=== PATIENT | female | born 1975 | race Caucasian/White ===

== ENCOUNTER → 2019-06-01 14:28 | Outpatient (CLI) | payer BC, MEDICAID, SELFPAY ==
--- NOTE | 2019-06-01 | IMM_PTH ---
PATIENT: FREDDY STEINER LOC: [facility] U#:[id number] AGE/SX: 50/F ROOM: RE06/01/[address]: Dr. Ephraim Villafana MD : 1975 BED: DIS: SPEC #: [id number] RECD: 06/04/19 13:10 STATUS: PRATEEK REQ #: [id number] CAROLYN: 06/01/19 00:[address]: Ephraim Villafana DEPT: IMMUNOHISTOCHEMISTRY RECD BY: Courtney Lim ENTERED: 06/04/19 13:11 SP TYPE: IMMUNO OTHR DR: Dr. Ronald Valenzuela MD Tissues: Left breast, NOS Procedures: CALPONIN-1 (add) CK5-6 (add) CK8 (add) E-CAD (add) HER2 TUNG (add) KI-67 (add) P53 (add) HI (add) P40 (add) ER (initial) PHYSICIAN & INSTITUTION [address] [address] SPECIMEN INFORMATION: Tissue Source: Left breast biopsy Clinical Info: Abnormal left breast ultrasound Specimen Number: [id number] CPT code: 82688, 90375 x6, 70292 x3 METHODOLOGY: Deparaffinized sections of prefer/formalin-fixed tissue or PAP/DQ stained slides are incubated with monoclonal/polyclonal antibodies/oligonucleotide probes. Localization is made via biotin free immunoperoxidase method. Appropriate controls are performed and reacted as expected. Results on target cell population are indicated in the following table: RESULTS: ANTIBODY / CLONE RESULT P53 (DO-7) positive, >20% Ki-67 (30-9) positive, low CK8 (83woibR02) positive CK5-6 (D5 & 1684) negative Calponin-1 (CK762Y) negative P40 (BC28) negative E-Cad (ECH-6) positive MORPHOMETRIC ANALYSIS ER (clone 6F11) >95%, strong intensity HI (clone 16/1E2) 84%, moderate to strong intensity Her-2Neu (clone CB11) 0 The prognostic test for HER2 is performed on formalin-fixed paraffin embedded tissue. A 3+ (positive) staining pattern is defined as intense, homogeneous, complete, circumferential membranous staining in >10% of contiguous tumor cells. A similar weak (2+) staining pattern is interpreted as equivocal. DALLIN follow-up testing is recommended for all equivocal cases. Positivity/negativity for ER/HI is reported if > or < 1% of the tumor cells are immuno- reactive, respectively. The ASCO/CAP criteria is used for scoring. Reference: Journal of Clinical Oncology, 2013; 31:5070-5893 & 2010; 16:7899-2721. Duration of fixation: 27 Hrs; Sample Adequate: Yes. These assays have not been validated on decalcified tissues. Results should be interpreted with caution given the likelihood of false negativity on decalcified specimens. These tests were developed and their performance characteristics determined by [facility]. They may not have been cleared or approved by the U.S. Food and Drug Administration. The FDA has determined that such clearance or approval is not necessary. INTERPRETATION: Left breast, biopsy: Invasive ductal carcinoma, nuclear grade 2. Positive for estrogen receptors (favorable prognostic indicator). Positive for progesterone receptors (favorable prognostic indicator). Negative for overexpression of JLQ3php. AM:jeri 06/04/19
[2019-06-01 13:59] VITALS: BMI 28.5
--- NOTE | 2019-06-01 14:00 | BRBX_PTH ---
PATIENT: FREDDY STEINER LOC: [facility] U#:[id number] AGE/SX: 50/F ROOM: RE06/01/[address]: Dr. Ephraim Villafana MD : 1975 BED: DIS: SPEC #: [id number] RECD: 06/01/19 15:01 STATUS: PRATEEK MAVIS #: [id number] CAROLYN: 06/01/19 14:[address]: Ephraim Villafana DEPT: SURGICAL PATHOLOGY RECD BY: Alexandro Branch ENTERED: 06/02/19 10:37 SP TYPE: BREAST BX OTHR DR: Dr. Ronald Valenzuela MD Tissues: Left breast, NOS Procedures: Surgery Specimen Level IV HEADER OPERATION: Left breast biopsy PRE-OP DIAGNOSIS: Abnormal left breast ultrasound TISSUE SUBMITTED: Left breast tissue FIXATION TIME: 27 hours MICROSCOPIC DIAGNOSIS Left breast, ultrasound-guided core biopsy: Invasive ductal carcinoma with the following characteristics: Maximal length - 10 mm Nuclear grade - 2 AM:rg 8/8/19 COMMENT ER/CT/Kpc4doo studies are being performed on sections of tumor and the results from this study will be reported separately ([id number]). Case has been reviewed in consultation with Dr. Lewis who concurs with the above diagnosis. IDC:HALEIGH MICROSCOPIC DESCRIPTION Slides are reviewed. GROSS DESCRIPTION Received in fixative is one container labeled with the patient's name and designated left breast. The specimen consists of one elongated fragment of denton soft tissue measuring 1.2 cm in length and 0.1 cm in diameter. The specimen is totally submitted in one cassette. / HALEIGH:jeri 06/02/19 TC:0 CPT: 84632 ADDENDUM ADDENDUM ADDENDUM ADDENDUM ADDENDUM ADDENDUM ADDENDUM ADDENDUM ADDENDUM ADDENDUM ADDENDUM 06/22/2019 14:06 ADDENDUM 06/22/2019 14:06 ADDENDUM 06/22/2019 14:06 ADDENDUM 06/22/2019 14:06 ADDENDUM 06/22/2019 14:06 This addendum is added to incorporate an outside pathology consultation report. The case was examined at [facility] (#[id number]) and the following diagnosis was rendered. Left breast, ultrasound guided core biopsy: Invasive ductal carcinoma provisional histologic grade 1. -see coment Please see complete above mentioned consultation report in EMR
--- NOTE | 2019-06-01 14:40 | BI_ITS ---
MAMMOGRAPHY - UNILATERAL DIAGNOSTIC: LEFT BREAST REASON FOR EXAM: Female, 44 years old. Left breast lump. Breast biopsy performed earlier today at the 12:00 position. PERTINENT HISTORY: Non-contributory. TECHNIQUE: Digital unilateral breast rosibel (3D mammographic acquisition) in the CC and MLO projections. 2-D mediolateral oblique (MLO) and craniocaudad (CC) views of both breasts were obtained. CAD: Full Field Digital Mammography with Computer Added Detection was performed. COMPARISON: Comparison is made with prior outside examination dated May 21, 2019. FINDINGS: Breast Composition: The breasts are heterogeneously dense, which may obscure small masses. A tissue clip marker is seen within a 1.3 cm by 1.4 cm nodule in the upper midportion of the breast at the 12:00 position. On the medial lateral oblique view, there is evidence of a 1.3 cm x 0.7 cm nodule in the inferior aspect of the breast. This corresponds to a nodular density at the 12:00 position of the breast adjacent to the recently biopsied nodule.. There is also evidence of a 1.9 cm x 1.6 cm well-defined nodule in the upper lateral aspect of the left breast. This most likely presents a cyst. No other significant abnormalities are identified. BI/DIAG MAMM W/CAD, UNILAT IMPRESSION: Nodular densities in the left breast as described. Correlation with ultrasound is recommended. ASSESSMENT CATEGORY: BIRADS Category 0: Incomplete. Need additional imaging evaluation. A letter regarding these results will be sent to the patient by the facility within 30 days. Approximately 10% of breast cancers are not detected by mammography. A normal mammogram should not delay biopsy of a clinically suspicious abnormality. Electronically Signed: Reed Krishnamurthy, at 8:50 EDT , Service support ,
--- NOTE | 2019-06-01 15:44 | US_ITS ---
STUDY: ULTRASOUND BREAST - LEFT REASON FOR EXAM: Female, 44 years old. Abnormal mammogram. TECHNIQUE: Axial and longitudinal images of the LEFT breast were performed with a high resolution ultrasound transducer. COMPARISON: Comparison is made with prior mammogram done earlier today. FINDINGS: LEFT Breast: The lower outer quadrant was examined by ultrasound. There is a 1.8 cm x 1.9 cm x 0.8 cm cyst at the 3:00 position breast at 5 cm from the nipple. The patient will be recalled for imaging of the upper outer quadrant of the left breast. US/Breast Limited Unilateral IMPRESSION: There is a 1.8 cm x 1.9 cm x 0.8 cm cyst at the 3:00 position of the breast at 5 cm from the nipple. The patient will be recalled for additional imaging of the upper outer quadrant of the breast. ASSESSMENT CATEGORY: BIRADS Category 0: Incomplete. Need additional imaging evaluation. A letter regarding these results will be sent to the patient by the facility within 30 days. Electronically Signed: Reed Krishnamurthy, at 10:15 EDT , Service support ,
== END ==
PROVIDERS: Family Provider Family Medicine; PCP Family Medicine; Referring Provider Surgery; Visit Provider Surgery
DX: D05.12 Intraductal carcinoma in situ of left breast (principal)
CPT/HCPCS: 76642; 77061; 77065; 88305; 88341; 88342; G0279

== ENCOUNTER → 2019-06-02 13:57 | Outpatient (CLI) | payer MEDICAID, SELFPAY ==
[2019-06-01 13:59] VITALS: BMI 28.5
--- NOTE | 2019-06-02 13:59 | US_ITS ---
STUDY: ULTRASOUND BREAST - LEFT REASON FOR EXAM: Female, 44 years old. Abnormal mammogram. TECHNIQUE: Axial and longitudinal images of the LEFT breast were performed with a high resolution ultrasound transducer. COMPARISON: Comparison is made with prior mammogram done earlier today as well as prior ultrasound dated June 01, 2019. FINDINGS: LEFT Breast: The inferior outer aspect of the left breast was examined. There is a homogeneous thyroid glandular tissue. No solid or cystic mass lesion is seen. US/Breast Limited Unilateral IMPRESSION: Unremarkable sonographic examination of the inferior outer aspect of the left breast ASSESSMENT CATEGORY: BIRADS Category 1: Negative. A letter regarding these results will be sent to the patient by the facility within 30 days. Electronically Signed: Reed Krishnamurthy, at 14:52 EDT , Service support ,
== END ==
PROVIDERS: Family Provider Family Medicine; PCP Family Medicine; Referring Provider Surgery; Visit Provider Surgery
DX: R92.8 Other abnormal and inconclusive findings on diagnostic imaging of breast (principal)
CPT/HCPCS: 76642

== ENCOUNTER → 2019-06-10 12:27 | Outpatient (CLI) | payer MEDICAID, SELFPAY ==
[2019-06-01 13:59] VITALS: BMI 28.5
--- NOTE | 2019-06-10 12:29 | MRI_ITS ---
STUDY: BILATERAL BREAST MR WITHOUT AND WITH CONTRAST REASON FOR EXAM: Female, 44 years old. Palpable lump at 12:00 position of left breast. Biopsy June 01, 2019 showed invasive duct carcinoma. TECHNIQUE: Multi-sequence multi-echo imaging of both breasts was performed with a dedicated breast coil. T1-weighted and T2-weighted images were performed before the administration of contrast. T1-weighted images were also performed after the administration of 14 IV Dotarem without complications. COMPARISON: Left breast ultrasounds dated June 01 and June 02, 2019 and left mammogram dated June 01, 2019. Bilateral diagnostic mammograms and left breast ultrasound from outside hospital dated May 21, 2019. FINDINGS: RIGHT BREAST: The breast tissue is fatty with minimal background enhancement. There are no abnormal enhancing masses or areas of non-mass enhancement in the right breast. LEFT BREAST: The breast tissue is fatty with minimal background enhancement. At approximately the 1:00 position of the left breast, 3 cm behind the nipple and approximately 1 cm lateral to the nipple, there is an irregular enhancing mass measuring approximately 1.3 cm x 8 mm. There is a tissue clip marker in the medial aspect of this enhancing mass (axial series 03793 image 128), representing the index lesion. At the 12:00 position, 4.7 cm behind the nipple and 2.1 cm above the nipple there is an irregular enhancing mass measuring 1.5 cm x 1.6 cm x 1.7 cm. This mass is approximately 2.2 cm above and 1.7 cm behind the lower enhancing lesion (axial series 62843 image 96). Both of these masses are highly suspicious for breast carcinoma. The lesions are located far enough away from each other that they involve 2 quadrants of the breast. This would make the lesions multicentric in their location. There are no enlarged or abnormal lymph nodes. There is no abnormality in the visualized regions of the chest or liver. MRI/Breast Bilateral W/O and W IMPRESSION: 2 irregular enhancing lesions in the left breast as described, representing multicentric involvement. No adenopathy identified. CATEGORY: BIRADS Category 6: Known Biopsy-Proven Malignancy - Appropriate Action Should Be Taken. A letter regarding these results will be sent to the patient by the facility within 30 days. Electronically Signed: Darius Cotto MD at 10:58 EDT , Service support ,
== END ==
PROVIDERS: Family Provider Family Medicine; PCP Family Medicine; Referring Provider Surgery; Visit Provider Surgery
DX: C50.912 Malignant neoplasm of unspecified site of left female breast (principal)
CPT/HCPCS: 77049; A9575; A4216; C8908

== ENCOUNTER 2021-03-19 09:34 | Day surgery (SDC) | payer MEDICAID, SELFPAY ==
[2019-06-11 17:46] VITALS: BMI 28.5
[2021-03-14 15:34] LABS: Hematocrit 43.4 % (37-47); Hemoglobin 13.9 g/dL (12.0-15.0); Mean Corpuscular Hgb 31.6 pg (27.0-32.0); Mean Corpuscular Volume 98.6 fL (81-99); Mean Platelet Vol. 11.7 fl (6.2-12.0); Platelet Count 243 K/mm3 (150-450); RBC Distribution Width CV 11.4 % (11.6-14.6)
[2021-03-14 16:08] LABS: Creatinine, Serum 0.66 mg/dL (0.55-1.02); EST Glomerular Filtration Rate 103 mL/min (>60); Est Glom Filt Rate - Afr Amer 125 mL/min (>60)
--- NOTE | 2021-03-18 20:46 | PCM.HP.BLA ---
History and Physical Date of Admission: 03/19/21 Surgical History and Physical Gabe Nguyen, a 46 year old female 3 0 0 0 2, presents for L/S BSO on March 19, 2021 at 11;15. -- Estrogen Receptor Positive Breast Cancer -- History of Hysterectomy in 2015 and reports she underwent a Bilateral Mastectomy with Reconstruction at [facility] and after that scare, I want my ovaries out of there. Took Chemo type medication, but unsure of the name at this time, and also a monthly Injection. Oncologist has indicated to patient that it would be beneficial to her breast cancer treatment to have ovaries removed. Ready to proceed with BSO which began had Breast Cancer in 2019. Telseamus claims it started suddenly and has been present 2 years on treatment meds. It occurs all the time. It is located in the BSO. Teliesha characterizes it to be non-radiating. Teliesha characterizes the quality asymptomatic. Severity is asymptomatic and very concerned; Additional comments are: Wants removed as preventive. MEDICATIONS HISTORY: Patient is also takin. Ativan 1 mg tablet, One pill by mouth once a day prn 2. Lupron Depot 3.75 mg intramuscular syringe kit, One injection once monthly 3. venlafaxine 100 mg tablet, One pill by mouth once a day ALLERGIES: Dilaudid, Chest pain Infections - none Illnesses - colitis Accidents - no injuries of consequence Hospitalizations - Childbirth and see surgery mvp; Review of Systems: GENERAL - Denies fever, or chills SKIN - Denies skin changes EYES - Denies visual changes EARS - Denies difficulty hearing NOSE - Denies nasal congestion or bleeding MOUTH - Denies sore throat or difficulty swallowing NECK - Denies pain or swelling RESPIRATORY - Denies shortness of breath or wheezing CARDIOVASCULAR - Denies palpitations or chest pain GASTROINTESTINAL - Denies nausea, vomiting, diarrhea, constipation GENITOURINARY - Denies dysuria, frequency of urination, incontinence of urine MUSCULOSKELETAL - Denies joint or muscle pain NEUROLOGICAL - Denies localized numbness or weakness PSYCHIATRIC - Denies depression or anxiety ENDOCRINE - Denies heat or cold intolerance, weight loss or gain HEMATO-IMMUNOLOGIC - Denies excesive bleeding with cuts SOCIAL HISTORY: Alcohol Use - denies drinking Smoking - used to smoke but quit and 2019 Diet - no soda, no seeds Lifestyle - Exercise - regular Seat Belt Use - always Employer - Self Employed Job Description - Daycare Illicit Drug Use - denies use of street drugs Sexual Activity - rarely active Residence - lives with son Children Name(s) - 2 children Control - Prior Hysterectomy FAMILY HISTORY: MENSTRUAL HISTORY: LMP Known?- Prior Hysterectomy, Prior Menses - 11/16/2014, LMP - 05/27/15, Age Onset Menarche - 13 PAST PREGNANCIES: Total Pregnancies - 3; Full Term Pregnancies - 3; Premature - 0; Abortions, Induced - 0; Abortions, Spontaneous - 0; Ectopics - 0; Multiple Births - 0; Living Children - 2 SURGICAL HISTORY: 1. 01/30/2015 hysteroscopy, D and C, HTA attempt, Lap BTO with filshie and BPS ; Rock Gloria M.D. - 2. C/S x3 - 1993, 1995, 1999 3. 10/27/2005 cholecystectomy 4. 07/13/2019 Bilateral Mastectomy w/Reconstruction ; Dr. Jhaveri 5. 06/19/2015 Robotic assisted vaginal hysterectomy/Bilateral salpingectomy ; Rock Gloria M.D. PHYSICAL EXAM BP- 120/70 Sitting, Right arm, large cuff Weight- 185.43181 lbs Height- 66 inch BMI:29.92 CONSTITUTIONAL - NAD, well nourished, and well developed SKIN - No rash, lesions, or ulcers HEENT - Normocephalic, PERRLA, EOMI NECK - No nodes, no nuchal rigidity and thyroid normal size and texture LYMPH NODES - Palpation of lymph nodes in neck and groins within normal limits LUNGS - CTA x2 without wheezes, crackles or rales CARDIAC - Regular rate and rhythm without rubs, murmurs, or gallops ABDOMEN - Without hepatosplenomegaly, distention, masses, rebound, or guarding; normal bowel sounds; no hernias EXTREMITIES - No edema or calf tenderness NEUROLOGICAL - Cranial nerves II-XII grossly intact PSYCHIATRIC - A and O to time, place, person, mood and affect External Genitial Vagina - non-tender without lesions Urethra/Urethral Meatus - non-tender Bladder - non-tender Vagina - vaginal carballo are pink and moist without loss of rugae and no evidence of atropy Cervix - Prior hysterectomy-well healed vaginal cuff Uterus - prior hysterectomy-absent Adnexa - clear without massess or tenderness ASSESSMENT/PLAN: 1. Malignant Neoplasm Of Unspecified Site Of Unspecified Female Breast Discussed options for treatment and plan to proceed with L/S BSO. Discussed RBAs of procedure including that this will make her permanently menopausal which is patient's desire. All questions answered.
[2021-03-19] VITALS (8 sets, daily range): BP systolic 118–143; BP diastolic 75–100; PULSE 58–62; RESP 16; TEMP 36.3–37.3; O2SAT 97–100; BMI 29.9
[2021-03-19] MEDS: Lactated Ringers 1,000 ML 100 ML IV (10:10)
--- NOTE | 2021-03-19 10:45 | OP.PCM_ITS ---
Problems Associated Problem List Diagnoses (1) Carcinoma of breast, estrogen receptor positive: Report of Operation Date of Procedure: 03/19/21 Pre-Operative Diagnosis: Estrogen Receptor Positive Breast Cancer Post-Operative Diagnosis: Estrogen Receptor Positive Breast Cancer Surgery/Procedure Performed:: Bilateral Laparoscopic Oophorectomy Description of Surgical Findings:: Normal pelvis with prior hysterectomy and bilateral salpingectomy. Surgeon: Rock Gloria sign out clerk: Deshaun Swann Type of Anesthesia: General (Endotracheal) Anesthesiologist: Tera Donahue Specimen's removed: Bilateral ovaries Estimated Blood Loss (mL): Minimal Fluids Replaced: Crystalloid Description of Procedure: Indications: This is a 46 year old patient who has the above diagnosis. She understands that all ovarian tissue may not be removed in the course of this procedure. She also understands after this procedure she will have menopausal symptoms for an indefinite period of time. All questions were answered to consider the patient well-informed. Procedure: The patient was taken to the operating room where after induction of general anesthesia, she was placed in the dorsolithotomy position and prepped and draped in the usual sterile fashion. The bladder was drained of approximately 100 cc of clear yellow urine with a catheter. Attention was turned toward the laparoscopic portion of the procedure. Approximately 20 cc of half percent ropivacaine was injected subumbilically, suprapubically and midway between. A 5 mm bladeless trocar was placed subumbilically and intraperitoneal placement confirmed. After CO2 insufflation was complete, a 10/12 mm bladeless trocar was introduced suprapubically. The above findings were noted. A 5 mm bladeless port was then placed midway between these 2 ports for tubal manipulation. Each ovary was identified and an Enseal device was used to divide the infundibulopelvic ligaments. Ovaries were removed through the lower 10/12 mm port. The peritoneal cavity and upper abdomen were examined and noted to be normal. Photographs were taken. Laparoscopic instruments with as much CO2 gas as possible were removed and incisions were closed with interrupted 4-0 Monocryl suture. Steri-Strips placed across the incision. The patient tolerated the procedure well was taken to recovery room in satisfactory condition and sponge instrument and needle counts were all reportedly correct. Estimated blood loss for the case was minimal. There were no apparent complications of the surgery. Specimens to pathology was bilateral ovaries Grafts/Implants Used: None Complications None Admit VTE Documentation VTE Present on Admission: Yes VTE Mechan Device Prophylaxis: SCD's
--- NOTE | 2021-03-19 10:53 | PCM.DC ---
Discharge Instructions Diet Discharge Diet: No restrictions (Increase fluid intake for the next 48 hours.) Activity Discharge Activity: Return to Normal Activity, May not drive while taking narcotic pain medications., May Shower and May Take a Tub Bath Additional Activity Instructions:: Ambulate often the next week after surgery. Nothing in the vagina for 5 days. Dressing / Incision Call your doctor if your incision/area has: Continuous Slow Oozing, Sudden Increased Bleeding, Increased Pain/ Swelling, Increased Redness and Foul Smelling Discharge Call your doctor if you observe: Fever of 101 or Higher, Inability to urinate, Inability to have a bowel movement and Using more than one pad per hour Remove Dressing in: leave in place till F/U Follow Up Care Please Follow Up With: Rock Gloria MD When: Call [phone] for an appointment in 3 to 4 weeks Test Results: Test results from this visit will be discussed in further detail at your follow-up appointment, if applicable. Discharge Plan Admission Primary Reason for Your Visit: Remove Ovaries and Tubes Attending Provider: Rock Gloria Primary Care Provider: Ronald Valenzuela Discharge Orders/Prescriptions Prescriptions: New oxycodone 5 mg capsule 5 mg PO Q6H PRN (Reason: pain) 7 Days Qty: 10 RF: 0 Continued leuprolide 3.75 mg Injectable 3.75 mg IM QMONTH RF: 0 lorazepam [Ativan] 1 mg Tablet 1 mg PO DAILY PRN (Reason: Anxiety) RF: 0 letrozole 2.5 mg Tablet 2.5 mg PO DAILY RF: 0 venlafaxine 75 mg Tablet Extended Release 24hr 75 mg PO DAILY RF: 0 naproxen sodium [Aleve] 220 mg Capsule 220 mg PO BID PRN (Reason: Pain) RF: 0 Referrals / Follow Up: Ronald Valenzuela MD [Primary Care Provider] - Disposition Disposition (needs filled in before D/C Order can be placed): Home, self care
--- NOTE | 2021-03-19 11:05 | OV_PTH ---
PATIENT: FREDDY STEINER LOC: [facility] U#:[id number] AGE/SX: 46/F ROOM: RE03/19/[address]: Dr. Rock Gloria MD : 1975 BED: DIS: 03/19/2021 SPEC #: [id number] RECD: 03/19/21 13:26 STATUS: PRATEEK REQ #: [id number] CAROLYN: 03/19/21 11:[address]: Rock Gloria DEPT: SURGICAL PATHOLOGY RECD BY: Amaris Boogie ENTERED: 03/20/21 08:26 SP TYPE: OVARY OTHR DR: Dr. Ronald Valenzuela MD Tissues: Ovary, NOS Procedures: Surgery Specimen Level IV HEADER OPERATION: Laparoscopic oophorectomy PRE-OP DIAGNOSIS: Malignant neoplasm of breast TISSUE SUBMITTED: Bilateral ovaries MICROSCOPIC DIAGNOSIS Right and left ovaries, bilateral oophorectomies: Corpora albicantia. AM:jeri 03/21/2021 MICROSCOPIC DESCRIPTION Slides are reviewed. GROSS DESCRIPTION Received in fixative is one container labeled with the patient's name and designated bilateral ovaries. The specimen consists of two ovaries. The ovaries are not identified as right or left. The ovaries measure 2.5 x 2 x 1.5 cm and 2 x 2 x 1 cm. Sections of both ovaries reveal unremarkable cut surfaces. The entire specimen is submitted in five cassettes as follows: 1 & 2 ? one ovary, 3-5 ? second ovary. / SJ:jeri 03/20/21 TC:5 CPT: 20198
[2021-03-19] MEDS: Ropivacaine 0.5% 30 ML Vial (11:20)
[2021-03-19] MEDS: oxyCODONE 5 MG Tablet PO (13:30)
== END 2021-03-19 14:02 | disposition home or self-care (01) ==
LOC: SDC 09:34 → AC 09:35
PROVIDERS: PCP Family Medicine; Referring Provider Obstetrics & Gynecology; Visit Provider Obstetrics & Gynecology
PROC: (CPT 58661; principal; 2021-03-19 10:50)
DX: N83.292 Other ovarian cyst, left side (principal); N83.291 Other ovarian cyst, right side; C50.919 Malignant neoplasm of unspecified site of unspecified female breast; Z17.0 Estrogen receptor positive status [ER+]; Z90.49 Acquired absence of other specified parts of digestive tract; Z79.899 Other long term (current) drug therapy; Z87.891 Personal history of nicotine dependence; Z88.5 Allergy status to narcotic agent; Z90.13 Acquired absence of bilateral breasts and nipples; Z90.79 Acquired absence of other genital organ(s)
CPT/HCPCS: 00840; 58661; 36415; 82565; 85027; 86850; 86900; 86901; 87426; 88305; C9803; J7120; C1760; J2405

== ENCOUNTER → 2024-06-15 | Outpatient (CLI) | payer BC, SELFPAY ==
--- NOTE | 2024-06-15 14:46 | RAD_ITS ---
STUDY: X-RAY - PELVIS AND BILATERAL HIPS REASON FOR EXAM: Female, 49 years old. Pain. TECHNIQUE: AP view of the pelvis.? 2 views of the right hip, and 2 views of the left hip were obtained. COMPARISON: None. FINDINGS: Normal bowel gas pattern. Normal visualized soft tissue structures. Normal bilateral iliac wings, sacroiliac joints and visualized sacrum. Normal bilateral superior and inferior pubic rami. Normal pubic symphysis. Normal bilateral ischial tuberosities. Mild arthrosis of both hips. RAD/Hips B/L min 2 views w/ Pelvis IMPRESSION: Mild arthrosis of both hips. No other abnormality. Electronically Signed: Darius Cotto MD at 15:48 EDT ,
== END | disposition home or self-care (01) ==
PROVIDERS: PCP Family Medicine; Referring Provider Family Medicine; Visit Provider Family Medicine
DX: M25.551 Pain in right hip (principal); M25.552 Pain in left hip
CPT/HCPCS: 73521

== ENCOUNTER → 2025-01-11 | Outpatient (CLI) | payer BC, SELFPAY ==
[2025-01-11 18:20] LABS: Hematocrit 39.6 % (37-47); Mean Corp Hgb Conc 32.8 g/dL (32-36); Mean Corpuscular Hgb 31.3 pg (27.0-32.0); Mean Corpuscular Volume 95.2 fL (81-99); Mean Platelet Vol. 11.9 fl (6.2-12.0); Platelet Count 272 K/mm3 (150-450); RBC Distribution Width CV 12.1 % (11.6-14.6); RBC Distribution Width SD 42.2 fl (35.1-43.9); Red Blood Count 4.16 M/mm3 (4.2-5.4); White Blood Count 6.4 K/mm3 (4.4-11.0)
[2025-01-11 19:07] LABS: PTHIN 42 pg/mL (11-61)
[2025-01-11 19:18] LABS: ALB/GLOB Ratio 1.7 RATIO (0.9-2.4); AST(SGOT) 23 U/L (<=31); Alanine Aminotransfer ALT/SGPT 12 U/L (<=34); Albumin, Serum 4.5 g/dL (3.5-5.0); Alkaline Phosphatase 111 U/L (35-104); Anion Gap 14 (5-15); BUN 11 mg/dL (4-19); BUN/Creat Ratio 17.5 RATIO (10-20); Calcium,Total 9.3 mg/dL (7.6-11.0); Carbon Dioxide 22.3 mmol/L (21.0-32.0); Chloride 98 mmol/L (98-108); Cholesterol 184 mg/dL (<=200); Creatinine, Serum 0.65 mg/dL (0.70-1.20); EST Glomerular Filtration Rate 108 (>60); Globulin 2.7 g/dL (2.2-4.2); Glucose 102 mg/dL (70-99); High Density Lipoprotein 68 mg/dL; Low Density Lipoprotein Calc. 82 mg/dL; Protein, Total 7.2 g/dL (5.9-8.4); Sodium Level 134 mmol/L (133-145); Total Bilirubin 0.72 mg/dL (0.00-1.30); Triglycerides 170 mg/dL; Very Low Density Lipoprotein 34 mg/dL (5-40); cholesterol:hdl ratio screen 2.72
[2025-01-11 19:20] LABS: Estradiol < 5.0 pg/mL; Follicle Stimulating Hormone 52.1 mIU/mL; Luteinizing Hormone 19.7 mIU/mL; Thyroid Stim Hormone (TSH) 0.676 uIU/mL (0.300-4.200)
[2025-01-13 04:07] LABS: PROGESTERONE 0.1 ng/mL (.)
== END | disposition home or self-care (01) ==
LOC: MFPLAB 13:54
PROVIDERS: PCP Family Medicine; Referring Provider Family Medicine; Visit Provider Family Medicine
DX: Z13.220 Encounter for screening for lipoid disorders (principal); M85.80 Other specified disorders of bone density and structure, unspecified site; Z78.0 Asymptomatic menopausal state
CPT/HCPCS: 80053; 80061; 82670; 83001; 83002; 83970; 84144; 84443; 85027

== ENCOUNTER → 2025-02-10 | Outpatient (CLI) | payer BC, SELFPAY ==
--- NOTE | 2025-02-10 11:50 | CT_ITS ---
PROCEDURE: ABDOMEN/PELVIS WITH CONTRAST 02/10/2025 REASON FOR EXAM: ABDOMINAL PAIN Nausea. TECHNIQUE: Abdomen and pelvis CT with intravenous contrast. Coronal and Sagittal reconstruction series were provided. PATIENT PREPARATION: Per protocol ORAL CONTRAST TYPE: None. CONTRAST: Isovue-300 VOLUME: 95 mL One or more dose reduction techniques were used (e.g., Automated exposure control, adjustment of the mA and/or kV according to patient size, use of iterative reconstruction technique. RADIATION DOSE SUMMARY: CTDlvol: 15.1 mGy DLP: 1134.8 mGycm COMPARISON: None FINDINGS: The patient is status post bilateral mastectomy with bilateral breast implants. Lung bases: Lung bases are clear. Liver: Normal size. No mass. Gallbladder: Surgically absent. Spleen: Normal size. Pancreas: Normal size without evidence of mass surrounding inflammation or ductal dilation. Adrenals: Unremarkable Kidneys: Normal renal sizes. No hydronephrosis. Bladder: Unremarkable Reproductive Organs: Prior hysterectomy. Adnexal regions are unremarkable. Bowel: Unremarkable Appendix: The appendix is not identified. There is no inflammatory process identified in the right lower quadrant to suggest appendicitis. Lymph nodes: Unremarkable. Vasculature: The abdominal aorta and IVC are normal. Peritoneum / Retroperitoneum: Unremarkable Bones: CT/Abdomen/Pelvis WITH Contrast IMPRESSION: Status post cholecystectomy and hysterectomy. No acute abnormality is seen. Reading Location: [place] [address]
[2025-02-10 14:55] LABS: Absolute Lymphocyte Count 1.29 X10^3/uL (0.83-4.51); Absolute Neutrophil Count 4.1 X10^3/uL (2.0-7.7); Basophil# 0.03 X10^3/uL; Basophil% 0.5 % (0-1); Eosinophils% 1.6 % (0-5); Hematocrit 41.2 % (37-47); Hemoglobin 13.7 g/dL (12.0-15.0); Lymphocyte # 1.29 X10^3/ul (0.83-4.51); Lymphocyte % 20.8 % (19-41); Mean Corp Hgb Conc 33.3 g/dL (32-36); Mean Corpuscular Hgb 30.9 pg (27.0-32.0); Mean Platelet Vol. 11.7 fl (6.2-12.0); Monocyte# 0.71 X10^3/uL; Monocyte% 11.5 % (0-10); NRBC Flagged by Analyzer 0 % (0-5); Neutrophil # 4.06 X10^3/uL (2.7-7.7); Neutrophil % 65.4 % (47-70); Platelet Count 268 K/mm3 (150-450); RBC Distribution Width CV 12.6 % (11.6-14.6); RBC Distribution Width SD 43.3 fl (35.1-43.9); Red Blood Count 4.43 M/mm3 (4.2-5.4); White Blood Count 6.2 K/mm3 (4.4-11.0)
[2025-02-10 15:11] LABS: D-Dimer Quantitative (DVT/PE) 0.27 FEU/ug/m (0.27-0.49)
[2025-02-10 16:11] LABS: ALB/GLOB Ratio 1.7 RATIO (0.9-2.4); AST(SGOT) 20 U/L (<=31); Alanine Aminotransfer ALT/SGPT 12 U/L (<=34); Albumin, Serum 4.5 g/dL (3.5-5.0); Alkaline Phosphatase 96 U/L (35-104); Anion Gap 13 (5-15); BUN 4 mg/dL (4-19); BUN/Creat Ratio 5.8 RATIO (10-20); CRP < 3.00 mg/L (0.0-3.0); Calcium,Total 9.3 mg/dL (7.6-11.0); Carbon Dioxide 24.7 mmol/L (21.0-32.0); Chloride 97 mmol/L (98-108); Creatinine, Serum 0.74 mg/dL (0.70-1.20); EST Glomerular Filtration Rate 99 (>60); Globulin 2.6 g/dL (2.2-4.2); Glucose 92 mg/dL (70-99); Potassium 3.7 mmol/L (3.3-5.1); Protein, Total 7.1 g/dL (5.9-8.4); Sodium Level 135 mmol/L (133-145); Total Bilirubin 0.88 mg/dL (0.00-1.30)
== END | disposition home or self-care (01) ==
PROVIDERS: PCP Family Medicine; Referring Provider Family Medicine; Visit Provider Family Medicine
DX: R10.31 Right lower quadrant pain (principal); R42 Dizziness and giddiness
CPT/HCPCS: 36415; 74177; 80053; 85025; 85379; 86140; Q9967